=== PATIENT | female | born 1985 | race Two or more races ===

== ENCOUNTER 2016-09-03 21:24 | Emergency (ER) | payer OTHER ==
[~2016-09-03] VITALS: Ht 162.6 cm; Wt 116.1 kg
[2016-09-03] MEDS ORDERED: NKM (21:34)
[2016-09-03 22:31] VITALS: BP 132/82
[2016-09-03] MEDS ORDERED: IBUPROFEN600 MG ORAL (23:13)
[2016-09-03 23:58] VITALS: BP_SYST 124; BP_SYST 132; BP_DIAS 80; BP_DIAS 82
--- NOTE | 2016-09-04 02:10 | Emergency Room Report ---
History of Present Illness General Chief Complaint: Multiple Trauma/Fall Source: Patient Present Illness HPI [id number] here for left lower back pain s/p accidental slip and fall at work. Contrary to lab coordinator note, patient c/o pain only to left lower back. Able to walk. Denies pain/injury to anywhere else. Allergies: Coded Allergies: No Known Allergies (Unverified , 09/03/16) Patient History Past Medical History: none Past Surgical History: none Pertinent Family History: none Social History: Denies: alcohol use, drug use, smoking Last Menstrual Period: august 07 Now: No Immunizations: UTD Reviewed Nursing Documentation: PMH: Agreed, PSxH: Agreed Nursing Documentation-PMH Past Medical History: No Stated History Review of Systems All Other Systems: negative except mentioned in HPI Physical Exam Vital Signs Date Time Temp Pulse Resp B/P Pulse Ox O2 Delivery O2 Flow Rate FiO2 09/03/16 21:28 98.1 88 16 125/81 98 Room Air Sp02 EP Interpretation: reviewed, normal General Appearance: normal inspection, well appearing, no apparent distress, alert, GCS 15, non-toxic Head: normocephalic, atraumatic Eyes: bilateral eye EOMI, bilateral eye PERRL ENT: normal ENT inspection, hearing grossly normal, normal voice Neck: normal inspection, full range of motion, supple, no bony tend Respiratory: normal inspection, lungs clear, normal breath sounds, no respiratory distress, no retraction, no wheezing Cardiovascular #1: regular rate, rhythm, no edema Gastrointestinal: normal inspection, normal bowel sounds, non tender, soft, no guarding, no hernia Genitourinary: no CVA tenderness Musculoskeletal: normal inspection, back normal, normal range of motion, Shasha' s Sign negative, other - Mild left paravertabl ttp. 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, motor strength/tone normal, speech normal Psychiatric: normal inspection Skin: normal inspection, normal color, no rash Medical Decision Making Diagnostic Impression: Primary Impression: Back pain Qualified Codes: M54.5 - Low back pain ER Course Xrays of lower back negative for acute trauma on ED review Analgesia provided DC home Other X-Ray Diagnostic Results X-Ray ordered: LS spine # of Views/Limited Vs Complete: 3 View Interpretation: no fractures, no dislocation, no soft tissue swelling Indication: Pain Impression: No acute disease Date Electronically Signed: Sep 04, 2016 Time Electronically Signed: 02:09 Interpreting ER Physician: Stas Last Vital Signs Date Time Temp Pulse Resp B/P Pulse Ox O2 Delivery O2 Flow Rate FiO2 09/03/16 23:58 98.1 76 16 124/80 99 Room Air Status: improved Disposition: HOME, SELF-CARE Condition: Improved Scripts Ibuprofen* (MOTRIN*) 600 Mg Tablet 600 MG ORAL THREE TIMES A DAY for low back pain for 7 Days, #30 TAB 0 Refills Prov: MODE VILLALPANDO M.D. 09/03/16 Patient Instructions: Musculoskeletal Pain Additional Instructions: - Xrays of your lower back are NORMAL. NO fracture - You probably bruised the bone or muscle - Take ibuprofen every 8 hours with food for pain - Apply ice to area of pain - Go to your primary care doctor for followup MODE VILLALPANDO M.D. Sep 04, 2016 02:10
--- NOTE | 2016-09-04 09:16 | Diagnostic Imaging Report ---
Indications: Back pain. Technique: 3 views of the lumbar spine Findings: Comparison: None Vertebral alignment is intact. No fracture, lytic destruction, or other acute changes are demonstrated. Small osteophytes margins of several disc spaces, normal in height. No additional degenerative changes, deformity, or other chronic changes are demonstrated. IMPRESSION: Minimal degenerative disc disease Otherwise negative lumbar spine series.
== END 2016-09-03 23:59 | disposition home or self-care (01) ==
LOC: EMR 22:00
DX: M54.5 Low back pain (principal)
CPT/HCPCS: 72020; 99283